=== PATIENT | female | born 1965 | race Asian ===

== ENCOUNTER → 2018-09-25 | Outpatient (CLI) | payer BC ==
--- NOTE | 2018-09-25 14:32 | Diagnostic Imaging Report ---
EXAM: US THYROID DATE: 09/25/2018 12:49 PM INDICATION:Abnormal laboratory findings, history of benign thyroid biopsy at another facility COMPARISON: None FINDINGS: Grayscale and color flow Doppler ultrasound of the thyroid was performed. Right lobe: 5.0 x 2.5 x 2.6 cm. Echotexture heterogeneous. Color flow vascularity normal. Nodules: Mid thyroid: 3.2 x 1.7 x 2.5 cm. Mixed density, isoechoic, wide, lobulated borders, macrocalcifications. TR 4c. Left thyroid: 4.7 x 1.0 x 1.6 cm. Heterogeneous echotexture. Normal color flow vascularity. Nodules: Mid thyroid: 0.9 x 0.7 x 0.9 cm. Mixed density, isoechoic, wide, ill-defined borders, no echogenic foci. TR2. Lower lateral: 0.8 x 0.4 x 0.8 cm, solid, isoechoic, wide, smooth borders, no calcifications. TR3a. IMPRESSION: 1. Dominant right thyroid nodule measuring 3.2 cm. Fine-needle aspiration biopsy is recommended by TIRADS criteria. History provided of outside thyroid ultrasound and previous biopsy, correlation with those findings is recommended to determine if the lesion is stable or progressive. 2. Small nodules in the left thyroid lobe do not meet criteria for biopsy. 3. The thyroid is heterogeneous in texture. ACR TI-RADS Lexicon: TR1, Benign: No FNA TR2, Not Suspicious: No FNA. TR3a (<1.5 cm): No follow-up. TR3b (1.5-2.5 cm), Mildly Suspicious: Follow at 1, 3, 5 years. TR3c (>2.5 cm), Mildly Suspicious: FNA. TR4a (<1.0 cm): No follow-up. TR4b (1.0-1.5 cm), Moderately Suspicious: Follow at 1, 2, 3, 5 years. TR4c (>1.5 cm), Moderately Suspicious: FNA. TR5a (<0.5 cm): No follow-up. TR5b (0.5-1.0 cm), Highly Suspicious: Follow at 1, 2, 3, 4, 5 years. TR5c (>1.0 cm), Highly Suspicious: FNA. Literature: ACR Thyroid Imaging, Reporting and Data System (TI-RADS): White Paper of the ACR TI-RADS Committee. J Am Radha Radiol 2017. Signed by: Dr. Eduardo Gamble M.D. on 09/25/2018 2:28 PM
== END ==
LOC: MERGE 12:35 → US 12:35
PROVIDERS: ATTEND Internal Medicine
DX: E04.1 Nontoxic single thyroid nodule (principal); R79.89 Other specified abnormal findings of blood chemistry
CPT/HCPCS: 76536; 77067